=== PATIENT | female | born 1945 | race Caucasian/White ===

== ENCOUNTER 2025-03-17 19:58 | Emergency (ER) | payer MEDICARE, SELFPAY ==
[2025-03-17 20:06] VITALS: BP 156/71
[2025-03-17 20:27] LABS: Hematocrit 37.3 % (37.0-47.0); Hemoglobin 12.2 g/dL (12.0-16.0); Mean Corp Hgb Conc. 32.7 g/dL (33.0-37.0); Mean Corpuscular Volume 89.4 fL (81.0-99.0); Nucleated Red Blood Cells % 0 %; Platelet Count 256 10^3/uL (130-400); Red Cell Dist. Width 13.2 % (11.5-14.5)
[2025-03-17 20:42] LABS: COVID-19 Antigen Negative (Negative)
[2025-03-17 20:48] LABS: ALT (SGPT) 13 U/L (0-35); AST (SGOT) 19 U/L (14-36); Albumin 3.8 g/dl (3.5-5.0); Alkaline Phosphatase 91 U/L (38-126); Blood Urea Nitrogen 15 mg/dl (7-17); Calcium 9.3 mg/dl (8.4-10.2); Carbon Dioxide 25 mmol/L (22-30); Chloride 105 mmol/L (98-107); Glucose 124 mg/dl (70-99); Lipase 84 U/L (23-300); Potassium 4.1 mmol/L (3.5-5.1); Sodium 137 mmol/L (135-145); Total Protein 6.6 g/dl (6.3-8.2); eGFR 57.31
[2025-03-17 23:10] VITALS: BMI 32.0
[2025-03-17 23:16] VITALS: BP 105/52
--- NOTE | 2025-03-17 23:18 | EDRN ---
Pt has had abdominal discomfort associated with diarrhea that started last night. No blood in stool. Pt had chills and a temp of 100.6. Pt felt better this morning but says she still got intermittent lower abd cramps. Pt started Gas-X, Pepto
Bismol and a medicine that she puts 20 drops in liquid and drinks it. Pt says on the way to ED, pt took 2 advil and thinks it has helped. Pt says it is 'better but uncomfortable.' Last BM around 1900 and pt says it was slightly formed. Nausea,
no vomiting. Pt also has a headache and has been using an ice pack on her head to help. No ill contacts.
[2025-03-18] VITALS: BP 111/81
--- NOTE | 2025-03-18 00:24 | ED.GENMED ---
History of Present Illness
General
Chief Complaint: Abdominal Pain
Source: patient
Exam Limitations: none
Time Seen by Provider: 03/17/25 23:46
Nursing documentation reviewed up to this point in time: agreed with
History of Present Illness
History of Present Illness:
79-year-old female past medical history of diabetes presenting to the emergency department today for concerns of diffuse abdominal pain nausea headache diarrhea since yesterday. Denies any chest pain shortness of breath has been able to tolerate by
mouth
Past History
Past History
ED Past Medical History: Other (Restless leg syndrome)
ED Past Surgical History: Gynecological and Orthopedic
Social History
Personal:
Living: with family
Review of Systems
Review of Systems
Allergies reviewed?: Yes
All Other Systems: ROS reviewed and negative except as documented in HPI and ROS
Phy Exam
Physical Exam
Physical Exam:
GENERAL: Alert , in no apparent distress
EYE: pupils equal and reactive
NECK: Supple, no significant adenopathy.
ENT: o/p clr, mmm.
CARDIAC: Regular rate and rhythm .
LUNGS: Clear breath sounds bilaterally, no acute respiratory distress, no wheezes/rales/rhonchi
ABDOMEN: Soft, without focal tenderness, no r/g, no cvat
NEUROLOGICAL: Alert and oriented, no focal neuro deficits
SKIN: Warm and dry, skin intact.
MUSCULOSKELETAL: No edema, well perfused.
PSYCH: Normal and appropriate interaction.
Course
Orders/Labs/Results
Orders:
Orders
03/17/25 20:19
COVID-19 Antigen Urgent
Source: Nasal Swab
Complete Blood Count/With Diff Urgent
Comprehensive Metabolic Panel Urgent
Lipase Urgent
Influenza A+B Rapid Molecular Urgent
FANY Source: Nasal Swab
Specimen Description:
03/18/25 00:23
Dicyclomine HCl [Bentyl] 20 mg IM NOW STA
Ondansetron Orally Disint [Zofran Odt (Orally Disintegrating)] 4 mg PO NOW STA
Abnormal Lab Results
03/17/25
20:19
RBC 4.17 L 10^6/uL
(4.20-5.40)
MCHC 32.7 L g/dL
(33.0-37.0)
Absolute Neuts (auto) 7.1 H 10^3/uL
(1.4-6.5)
Absolute Monos (auto) 0.8 H 10^3/uL
(0.1-0.6)
Lymphocytes % 17.5 L %
(20.5-51.1)
Glucose 124 H mg/dl
(70-99)
03/17/25 20:19
03/17/25 20:19
Vital Signs
Initial and Last Documented VS:
Initial Vital Signs
Temp Pulse Resp BP Pulse Ox
98.6 F 85 18 156/71 99
03/17/25 20:06 03/17/25 20:06 03/17/25 20:06 03/17/25 20:06 03/17/25 20:06
Last Documented Vital Signs
Temp Pulse Resp BP Pulse Ox
98.3 F 69 13 105/52 99
03/17/25 23:26 03/17/25 23:16 03/17/25 23:16 03/17/25 23:16 03/17/25 23:16
MDM/Problems Addressed
MDM/Problems Addressed:
79-year-old female presenting to the emergency department today with concerns of diffuse abdominal crampy discomfort with associated nausea diarrhea headache low-grade temp since last night on arrival here hypertensive otherwise vital signs are
normal afebrile labs unremarkable patient to tolerate by mouth. She claims that symptoms have been improving. No focal abdominal pain to palpation. Symptoms most consistent with potential stomach bug plan for symptomatic treatment otherwise
strict return precautions given.
*Pulse Oximetry
SaO2: 99
Oxygen Mode of Delivery: Room air
Patient hypoxic: no (99)
*Critical Care Note
Total Time (30-74mins, 75-104mins- exclusive of procedures): Not Applicable
ED Attending Note
-
Portions of this chart may have been created with voice recognition software.� Occasional wrong word or��sound alike� substitutions may have occurred due to the inherent limitations of voice recognition software.
Discharge Plan
Departure
Patient Disposition: Home (Routine Discharge)
Date of Disposition: 03/18/25
Time of Disposition: 00:30
Patient with high blood pressure during this ER visit?: No
Condition: Good
Covid-19: Not Applicable
Discharge Problem:
Gastroenteritis
Instructions: Diarrhea in teens and adults
Prescriptions:
New
ondansetron 4 mg tablet,disintegrating
4 mg PO Q6H PRN (Reason: nausea and vomiting) Qty: 7 0RF
No Action
lovastatin 10 mg Tablet
10 mg PO DAILY
levothyroxine [Synthroid] 125 mcg Tablet
125 mcg PO DAILY
cholecalciferol (vitamin D3) [Vitamin D3] 25 mcg (1,000 unit) Capsule
25 mcg PO DAILY
Eliquis 5 mg Tablet
5 mg PO BID
PreserVision AREDS-2 250-90-40-1 mg Capsule
1 tab PO BID
Ozempic 2 mg/dose (8 mg/3 mL) Pen Injector
2 mg SC QWEEK
Referrals:
Xiang Bolaños MD [Family Provider, Family Practice]
Activity Restrictions/Additional Instructions:
You came to the emergency department today with concerns of abdominal pain nausea diarrhea headache. This is most consistent with stomach bug. Please take the prescribed medication every 6 hours otherwise return for any worsening, new or
concerning symptoms.
Interventions
Interventions:
*Risk Screen - Suicide Last Done: 03/17/25 20:06
*General Assessment Last Done: 03/17/25 23:10
*Neglect/Abuse Screening Last Done: 03/17/25 20:06
*ED- Fall Risk Assessment Last Done: 03/17/25 23:31
*ED COVID-19 Vaccine History Last Done: 03/17/25 23:31
*ED Influenza Vaccine History Last Done: 03/17/25 23:31
RK-Lhnbup-Lhzalsxxeg Assessment Last Done: 03/17/25 23:32
Discharge Date and Time
Print Language: HUNGARIAN
[2025-03-18] MEDS: ZOFRAN ODT (ORALLY DISINTEGRATING) 4 MG PO (00:31)
[2025-03-18] MEDS: BENTYL 20 MG IM (00:32)
== END 2025-03-18 00:40 | disposition home or self-care (01) ==
LOC: EMR 19:58
PROVIDERS: Emergency Medicine; EMERGENCY PHYSICIAN Emergency Medicine; FAMILY PHYSICIAN Family Medicine
DX: K52.9 Noninfective gastroenteritis and colitis, unspecified (principal); E11.9 Type 2 diabetes mellitus without complications; G25.81 Restless legs syndrome; Z79.84 Long term (current) use of oral hypoglycemic drugs
CPT/HCPCS: 99284; 96372; 80053; 83690; 85025; 87502; 87811